=== PATIENT | female | born 1985 | race African-American/Black ===

== ENCOUNTER 2023-09-17 06:44 | Emergency (ER) | payer OTHER ==
[2023-09-17 07:08] VITALS: BP 117/78; PULSE 89; RESP 18; TEMP 97.9; BMI 33.5
[2023-09-17] MEDS: SODIUM CHLORIDE 0.9% 500 ML INFUS.BAG IV ONE (08:27)
[2023-09-17 08:35] LABS: BASO % 0.6 % (0-2.0); EOS % 3.3 % (0-4.5); HEMATOCRIT 35.3 % (32.4-45.2); HEMOGLOBIN 11.3 GM/dL (10.7-15.3); LYMPH % 27.3 % (8-40); MCH 23.6 pg (25.7-33.7); MCHC 31.9 g/dl (32.0-36.0); MEAN CELL VOLUME 74.1 fl (80-96); MEAN PLT VOLUME 8.6 fl (7.5-11.1); MONO % 7.2 % (3.8-10.2); NEUT % 61.6 % (42.8-82.8); PLATELET COUNT 295 10^3/uL (134-434); RBC 4.77 M/mm3 (3.60-5.2); RDW 17.9 % (11.6-15.6); WHITE BLOOD COUNT 5.8 K/mm3 (4.0-10.0)
[2023-09-17 08:39] LABS: EPI CELLS 25 /uL (0-25.1); HYALINE CASTS 1 /uL (0-3.1); URINE APPEARANCE CLEAR; URINE BACTERIA 1252 /uL (0-1359); URINE BILIRUBIN NEGATIVE (NEGATIVE); URINE COLOR YELLOW; URINE GLUCOSE (UA) NEGATIVE (NEGATIVE); URINE KETONE 1+ (NEGATIVE); URINE LEUK ESTERASE 1+ (NEGATIVE); URINE NITRITE NEGATIVE (NEGATIVE); URINE PROTEIN NEGATIVE (NEGATIVE); URINE RBC 21 /uL (0-23.9); URINE WBC 49 /uL (0-25.8)
[2023-09-17 09:04] LABS: POTASSIUM 4.2 mmol/L (3.5-5.1)
[2023-09-17 09:06] LABS: CALCIUM 9.1 mg/dL (8.5-10.1)
[2023-09-17 09:07] LABS: ALBUMIN 3.8 g/dl (3.4-5.0)
[2023-09-17 09:08] LABS: BLOOD UREA NITROGEN 9.2 mg/dL (7-18)
[2023-09-17 09:10] LABS: CREATININE 0.9 mg/dL (0.55-1.3)
[2023-09-17 09:12] LABS: BILIRUBIN,TOTAL 0.5 mg/dL (0.2-1); TOT PROT 7.6 g/dl (6.4-8.2)
[2023-09-17] MEDS ORDERED: CEPHALEXIN MONOHYDRATE 500 MG CAPSULE (UD) ONE (09:42)
[2023-09-17] MEDS: CEPHALEXIN MONOHYDRATE 500 MG CAPSULE (UD) PO ONE (09:43)
== END 2023-09-17 10:18 | disposition home or self-care (01) ==
LOC: JER 06:44
DX: N30.00 Acute cystitis without hematuria (principal); E86.0 Dehydration; R53.1 Weakness; Z20.822 Contact with and (suspected) exposure to COVID-19
CPT/HCPCS: 0241U-QW; 36415; 80053; 81003; 84703; 85025; 93005; 93010; 99284-25

== ENCOUNTER 2023-11-20 10:39 | Emergency (ER) | payer OTHER ==
[2023-11-20 10:45] VITALS: BP 112/72; PULSE 88; RESP 16; TEMP 99; BMI 33.6
[2023-11-20] MEDS ORDERED: ACETAMINOPHEN 500 MG TABLET (FP) ONE (11:10)
[2023-11-20] MEDS ORDERED: IBUPROFEN 400 MG TABLET (FP) PO ONE (11:10)
[2023-11-20] MEDS: IBUPROFEN 400 MG TABLET (FP) PO ONE (11:16)
[2023-11-20] MEDS: ACETAMINOPHEN 500 MG TABLET (FP) PO ONE (11:17)
[2023-11-20 12:01] LABS: THROAT:GRP A STREP NOT DETECTED (NOTDETECTED)
[2023-11-20] MEDS ORDERED: DEXAMETHASONE SOD PHOSPHATE 10 MG/1 ML VIAL ONE (12:28)
[2023-11-20] MEDS: DEXAMETHASONE SOD PHOSPHATE 10 MG/1 ML VIAL PO ONE (12:31)
== END 2023-11-20 13:09 | disposition home or self-care (01) ==
LOC: JERFT 10:39 → JER 10:39 → JERFT 13:09
DX: J02.9 Acute pharyngitis, unspecified (principal); R51.9 Headache, unspecified; Z20.822 Contact with and (suspected) exposure to COVID-19
CPT/HCPCS: 0241U-QW; 87651; 99283-25; J1100